=== PATIENT | female | born 1950 | race Caucasian/White ===

== ENCOUNTER 2018-10-21 16:12 | Emergency (ER) | payer OTHER ==
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
[2018-10-21] MEDS ORDERED: DIPHTH/TETANUS/ACEL. PERTUSSIS IM ONLY ONE (16:35)
[2018-10-21] MEDS ORDERED: IOPAMIDOL 76% 100 ML INFUS BTL 100 ML ONE (17:07)
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
[2018-10-21] MEDS ORDERED: NS(*) 0.9% 500 ML BAG 500 ML IV ONE (18:00)
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
[2018-10-21] MEDS ORDERED: METH-543 PO (19:00)
[2018-10-21 19:12] VITALS: BP 148/66
[2018-10-22] MEDS ORDERED: ASPI81TA86 PO (00:51)
[2018-10-22] MEDS ORDERED: ASCO-191 PO (00:51)
== END 2018-10-21 19:20 | disposition home or self-care (01) ==
LOC: ER 16:31
DX: S20.212A Contusion of left front wall of thorax, initial encounter (principal); S10.93XA Contusion of unspecified part of neck, initial encounter; S81.812A Laceration without foreign body, left lower leg, initial encounter; V49.40XA Driver injured in collision with unspecified motor vehicles in traffic accident, initial encounter
CPT/HCPCS: 12002; 70491; 71260; 73590; 73610; 74177; 90471; 90715; 99284; Q9967